=== PATIENT | female | born 1990 | race Two or more races ===

== ENCOUNTER 2023-09-18 11:02 | Outpatient (AMB) | payer OTHER, MEDICAID, SELFPAY ==
[2023-09-18 11:12] VITALS: BP 100/64; PULSE 76; O2SAT 99; BMI 23.3
--- NOTE | 2023-09-18 11:12 | MHC.OFFVIS ---
Vital Signs 09/18/23 11:12 Height 5 ft 4 in Weight 136 lb 0.403 oz BMI 23.3 BP 100/64 Blood Pressure Location Lt brachial Position Sitting Pulse 76 Pulse Source Pulse Oximeter Pulse Oximetry (%) 99 Oxygen Delivery Method Room Air Intake Visit Reasons: Joint Pain Intake Note: Patient is a new patient with complaint of joint pain in hands and feet, and elbows for 1 year, she states it's pretty painful . Allergies No Known Allergies Allergy (Verified 09/18/23 11:15) Medication List - Last Reconciled 09/18/23 by Chetan Saldana MD cyclosporine 0.05% (Restasis) drps ophthalmic (eye) metformin ER 750 mg PO DAILY HPI Comments Details: This is a 33-year-old female who presents for evaluation of multiple joint pain. Over the last year patient has noticed increased pain and achiness of her hands, feet, usually worse with activity, has not noticed any significant swelling or morning stiffness. She denies any skin rashes or fevers. She mentions that she has dry eyes for years, she was prescribed Restasis 3-4 years ago without much improvement. Was recently restarted on Restasis 2 months ago. She is going back for a follow-up. She denies any history suggestive of uveitis or colitis. Her mother has psoriasis and possible psoriatic arthritis. She has a sister with Crohn's she denies any unintentional weight loss, patient had 7 pregnancies in total, 4 children and 3 miscarriages. Denies any history of DVT/PE [facility] Medical History (Updated 09/18/23 @ 11:51 by Chetan Saldana MD) Polycystic ovaries Hyperlipidemia Pain in joint, multiple sites Surgical History Hx of hernia repair Family History Father Migraine Hypercholesteremia Mother Hypertension History of thyroid disorder Psoriasis Paternal Grandfather Alzheimers disease Brother Heart disease Sister Crohn disease Social History Comment: rarely Patient Tobacco Use Status: Never used Tobacco Current occupational status: employed Current occupation: desk job Female Reproductive History Menstrual Total pregnancies: 7 Number of Living Children: 4 Ab spontaneous: 3 Review of Systems Const Denies fever(s) Eyes Reports dry eyes Musc Reports arthralgias, Denies joint swelling and Reports stiffness Skin/Breast Denies rash Physical Exam Vital Signs: BMI result Body Mass Index 23.3 Const General: cooperative, healthy appearing and comfortable Nutritional Appearance: average body habitus Orientation/consciousness: patient oriented x3 Limitations: no limitations HEENT Head: Yes normocephalic and Yes atraumatic Mouth: moist mucous membranes Resp Effort & Inspection: normal respiratory effort and able to speak in complete sentences Auscultation: clear to auscultation bilaterally Skin General skin exam: no rashes or lesions noted Neuro General: patient oriented x3 Extrem Other: Very subtle osteoarthritic changes of both hands with Godwin's and Heberden's nodes No active synovitis Normal bilateral hand enrichment director strength Normal nailfold capillaroscopy No elbow pain with flexion-extension bilaterally Normal range of motion of shoulders without pain No knee pain with flexion-extension bilaterally Negative straight leg raise test bilaterally No ankle swelling or tenderness bilaterally Negative MTP squeeze test bilaterally No nail pitting Assessment & Plan Assessment & Plan (1) Pain in joint, multiple sites: Code(s): M25.50 - Pain in unspecified joint Category: Medical Plan: This is a 33-year-old female who presents for evaluation of multiple joint pain. On exam she has subtle osteoarthritic changes of her hands. No active synovitis noted. she has history of dry eyes requiring Restasis and she has positive family history of psoriasis in her mother and Crohn's colitis in her sister. I will order comprehensive serology to better understand her underlying immune process. Can take Tylenol as needed for joint pains Follow-up in 6-8 weeks Plan I spent 48 minutes reviewing patient's chart, evaluating patient, ordering diagnostic workup, counseling patient and documenting in the chart Orders: Orders Complete Blood Count Auto Diff Today M32.9 - Systemic lupus erythematosus, unspecified Comprehensive Met. Panel Today M32.9 - Systemic lupus erythematosus, unspecified C Reactive Protein Today M32.9 - Systemic lupus erythematosus, unspecified Erythrocyte Sedimentation Rate Today M32.9 - Systemic lupus erythematosus, unspecified Hepatitis A,B,C Profile Today Z11.59 - Encounter for screening for other viral diseases LORIE Reflex Titer and Pattern Today M32.9 - Systemic lupus erythematosus, unspecified Anti DNA DS Antibody Today M32.9 - Systemic lupus erythematosus, unspecified Complement C3 Today M32.9 - Systemic lupus erythematosus, unspecified Complement C4 Today M32.9 - Systemic lupus erythematosus, unspecified Protein Creatinine Ratio, Ur Today M32.9 - Systemic lupus erythematosus, unspecified UA w Microscopic Today M32.9 - Systemic lupus erythematosus, unspecified Rheumatoid Factor Today M25.50 - Pain in unspecified joint Immunofixation Pnl, Serum Today M32.9 - Systemic lupus erythematosus, unspecified Protein Electrophoresis, Serum Today M32.9 - Systemic lupus erythematosus, unspecified Anti Extractable Nuclear Ag Today M32.9 - Systemic lupus erythematosus, unspecified DNA Double Stranded-Crithidia Today M32.9 - Systemic lupus erythematosus, unspecified Sjogren's Antibodies Today M32.9 - Systemic lupus erythematosus, unspecified HLA B27 Today M45.9 - Ankylosing spondylitis of unspecified sites in spine Cyclic Citrullinated Peptide Today M25.50 - Pain in unspecified joint Coding Level of Care Code New Pt Level 4 (83627) Diagnoses Pain in joint, multiple sites M25.50
== END 2023-09-18 11:48 | disposition home or self-care (01) ==
PROVIDERS: PCP Registered Nurse; Visit Provider Student in an Organized Health Care Education/Training Program
DX: M25.50 Pain in unspecified joint (principal)
CPT/HCPCS: 99204

== ENCOUNTER → 2023-09-18 11:02 | Outpatient (BNVA) | payer OTHER, MEDICAID, SELFPAY | PROVIDERS: PCP Registered Nurse; Visit Provider Student in an Organized Health Care Education/Training Program ==